=== PATIENT | female | born 1970 | race Hispanic/Latino ===

== ENCOUNTER → 2017-12-20 | Outpatient (CLI) | payer OTHER ==
--- NOTE | 2017-12-20 12:26 | Diagnostic Imaging Report ---
PROCEDURE:HEEL/CALCANEOUS BILATERAL TECHNIQUE:AP and lateral views of each heel. INDICATION:Spur with heel pain. COMPARISON:None. FINDINGS: Small plantar spurs are present bilaterally. Each calcaneus is otherwise normal. CONCLUSION: Small plantar spurs bilaterally. Dictated by: Vazquez Rivas M.D. on 12/20/2017 at 12:29 Electronically approved by: Vazquez Rivas M.D. on 12/20/2017 at 12:29
== END ==
LOC: RAD 11:27
PROVIDERS: ATTEND Family Medicine
DX: M79.672 Pain in left foot (principal); M79.671 Pain in right foot